=== PATIENT | female | born 1950 | race Hispanic/Latino ===

== ENCOUNTER → 2020-06-21 | Day surgery (SDC) | payer MEDICARE, OTHER ==
[2020-06-16 11:29] LABS: BASOPHILS # (AUTO) 0.1 (0.0-0.1); BASOPHILS % 1.1 % (0.0-1.0); EOSINOPHILS # (AUTO) 0.4 (0.0-0.4); EOSINOPHILS % 5.8 % (0.0-6.0); HEMATOCRIT 41.4 % (34.2-44.1); HEMOGLOBIN 13.9 g/dL (12.0-16.0); LYMPHOCYTES # (AUTO) 2.4 (1.0-3.2); LYMPHOCYTES % 33.2 % (18.0-39.1); MEAN CORPUSCULAR HEMOGLOBIN 28.7 pg (28-32); MEAN CORPUSCULAR HGB CONC 33.6 g/dL (31-35); MEAN CORPUSCULAR VOLUME 85.4 fL (81-99); MONOCYTES # (AUTO) 0.6 (0.2-0.8); MONOCYTES % 8.7 % (4.4-11.3); NEUTROPHILS # (AUTO) 3.6 (2.1-6.9); NEUTROPHILS % 51.1 % (38.7-80.0); PLATELET COUNT 290 x10e3/uL (140-360); RED BLOOD COUNT 4.85 x10e6/uL (3.6-5.1); RED CELL DISTRIBUTION WIDTH 13.2 % (11.7-14.4)
[2020-06-16 11:49] LABS: ALBUMIN 3.7 g/dL (3.5-5.0); ANION GAP 13.6 mmol/L (8-16); CALCIUM 9.8 mg/dL (8.4-10.2); CREATININE, SERUM 0.98 mg/dL (0.57-1.11); POTASSIUM 3.6 mmol/L (3.5-5.1)
[2020-06-21] VITALS (8 sets, daily range): BP systolic 135–164; BP diastolic 66–100
[~2020-06-21] VITALS: Ht 154.9 cm; Wt 78.5 kg
[~2020-06-21] MED LIST: ALPRAZOLAM 0.5 MG TAB ONE; AMLODIPINE BESY10 MG PO; DIPHENHYDRAMINE HCL 25 MG CAP ONE; FENTANYL CITRATE/PF 100MCG/2 ML INJ ONE; FLUOXETINE HCL20 MG PO; HEPARIN SOD (PORCINE) 1000 UNIT/ML 30ML ONE; HEPARIN SOD/SOD CHLORIDE 2,000 ML ONE; IOPAMIDOL 370 MG/ML 200 ML INFUS..BTL INJ ONE; LOSARTAN-HCTZ1 EAC1 PO; METOPROLOL TART50 MG PO; MIDAZOLAM HCL 2 MG/2 ML VIAL ONE; OMEPRAZOLE40 MG PO; SIMVASTATIN40 MG PO; SODIUM CHLORIDE 0.9% 1000ML 1,000 ML ONE; SYNTHROID100 MCG PO; VERAPAMIL HCL 2.5 MG/ML 2 ML VIAL ONE; VITAMIN D PO
--- NOTE | 2020-06-21 13:16 | NUR ---
1316pReceived pt to room #10,bedside report received from Min HENSON. Alert oriented and appropriate, PERRLA, respirations even and unlabored to room air. Pulses x4 extremities equal and strong. Pedal pulses PT/DP X4 and marked. Cap fill brisk < 3 sec. Rt Tr band no fix. No gross issues pain,pallor, pressure or dysrhythmia Skin warm and dry integrity appears D/I. IV 20g to presents healthy w/o s/s of infiltration or complaint. Abdomen soft and supple. pt offered toileting, denies need to urinate or defecate. No personal affects with patient. Family at bedside. Pt and family verbalizes understanding of POC. Currently w/o complaint of pain or need.
--- NOTE | 2020-06-21 13:28 | Operative Report ---
DATE OF PROCEDURE: 06/21/2020 SURGEON: Ivan Schmidt MD INDICATIONS: Coronary artery disease, angina. PROCEDURES PERFORMED: 1. Ultrasound-guided access in the right radial artery with sheath placement. 2. Conscious sedation, 35 minutes. 3. Left heart catheterization, selective coronary angiography. 4. Deployment of right wrist TR band. COMPLICATIONS: None. RECOMMENDATIONS: Medical therapy. DESCRIPTION OF PROCEDURE: Access was obtained in the right radial artery using ultrasound guidance. A 5-Greenlandic sheath was placed. Coronary angiography demonstrated 30% to 50% distal left main stenosis. Circumflex was small vessel. Left anterior descending artery had diffuse 30% to 50% stenosis. Right coronary artery with a dominant vessel with mid 50% stenosis following which, an aneurysmal segment was noted. LV end-diastolic pressure of 10. No gradient across the aortic valve on pullback. Ivan Schmidt MD [facility] /[id number]
--- NOTE | 2020-06-21 14:00 | NUR ---
1400pRADIAL Compression removal: Initial Cuff volume 12 cc 1400 -2cc Removed No hematoma/bleeding noted with normal neurovascular function. 1415 -5cc Removed No hematoma/ bleeding noted with normal neurovascular function. 1430 -5 cc Removed No hematoma/bleeding noted with normal neurovascular function. Air removal completed. Stasis achieved sterile 2x2,Tegaderm, Coban dressing No hematoma, bleeding noted with normal neurovascular function. Wrist splint in place. Pt instructed on POC. Ds/Rn
--- NOTE | 2020-06-21 14:45 | NUR ---
1445p while preparing to dress became symptomatic. HR decreased to 40's 90 systolic. 200NS bolus with HOB. Recovered bp 120/[address] Schmidt return call was informed of drop bp with drop in HR. States ok to dc home if walks ok Rt Tr band no gross issues pain,pallor,pressure or dysrhythmia. ds/rn
--- NOTE | 2020-06-21 15:30 | NUR ---
1530p Pt meets DC criteria. Rt TR band assessed for s/s of complication and presence of hematoma. Skin warm, dry, no discolor, and pulses present. IV removed from left hand Distal tip appears intact. VS WNL. Pt denies pain, sob, or need at this time. Family/ at bedside Review of discharge paperwork and follow up instructions. verbalized understanding. Pt to wheelchair and transported to front of hospital. Transferred to private vehicle under own strength w/o incident with DC paperwork in hand. -Asymptomatic. No further c/o dizzy. Md Dr Schmidt ok to dc home aware of importance of f/o ds/rn
== END | disposition home or self-care (01) ==
LOC: CATH LAB 09:52 → EDSEX 12:00
PROVIDERS: ATTEND Internal Medicine Interventional Cardiology
DX: I25.118 Atherosclerotic heart disease of native coronary artery with other forms of angina pectoris (principal); I10 Essential (primary) hypertension; Z01.812 Encounter for preprocedural laboratory examination; Z11.59 Encounter for screening for other viral diseases; Z68.32 Body mass index [BMI] 32.0-32.9, adult; Z82.49 Family history of ischemic heart disease and other diseases of the circulatory system
CPT/HCPCS: 36415; 76937; 80053; 85025; 93458; C1769 ×2; J1644; J2250; J3010; J7030; Q9967; U0002; 99152

== ENCOUNTER 2020-08-11 12:30 | Emergency (ER) | payer MEDICARE ==
[~2020-08-11] VITALS: Ht 154.9 cm; Wt 78.9 kg
[~2020-08-11 12:30] MED LIST changes: -ALPRAZOLAM 0.5 MG TAB ONE; -DIPHENHYDRAMINE HCL 25 MG CAP ONE; -FENTANYL CITRATE/PF 100MCG/2 ML INJ ONE; -HEPARIN SOD (PORCINE) 1000 UNIT/ML 30ML ONE; -HEPARIN SOD/SOD CHLORIDE 2,000 ML ONE; -IOPAMIDOL 370 MG/ML 200 ML INFUS..BTL INJ ONE; -MIDAZOLAM HCL 2 MG/2 ML VIAL ONE; -SODIUM CHLORIDE 0.9% 1000ML 1,000 ML ONE; -VERAPAMIL HCL 2.5 MG/ML 2 ML VIAL ONE
[2020-08-11] MEDS ORDERED: HYDROCODONE/APAP 5MG-325MG TAB PO ONE (12:45)
[2020-08-11] MEDS ORDERED: ONDANSETRON HCL 4 MG ORAL DISINTEGRATING TAB PO ONE (12:45)
[2020-08-11] MEDS ORDERED: TYLENOL # 31 EA PO (12:57)
[2020-08-11] MEDS ORDERED: IBUPROFEN IB200 MG PO (12:57)
[2020-08-11] MEDS ORDERED: ZOFRAN4 MG SL (12:57)
--- NOTE | 2020-08-11 13:06 | Emergency Department Note ---
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 Any updates have been documented here. 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 Past Surgical History: Hysterectomy Social History Smoking Cessation: Never Smoker Alcohol Use: Social Any Illegal Drug Use: No TB Exposure/Symptoms: No Physically hurt or threatened: No Family History Family history of heart diseas: No Other Any Pre-Existing Lines (PICC,: No Review of Systems Review of Systems Constitutional: Reports no symptoms EENTM: Reports no symptoms Cardiovascular: Reports no symptoms Respiratory: Reports no symptoms Gastrointestinal: Reports no symptoms Genitourinary: Reports no symptoms Integumentary: Reports no symptoms Neurological: Reports no symptoms Psychological: Reports no symptoms Endocrine: Reports no symptoms Hematological/Lymphatic: Reports no symptoms Physical Exam Related Data Allergies: Coded Allergies: No Known Allergies (Unverified , 08/11/20) Vital signs reviewed: Yes Physical Exam CONSTITUTIONAL Constitutional: Present well-developed, Present well-nourished HENT HENT: Present normocephalic, Present atraumatic, Present oropharynx clear/moist, Present nose normal HENT L/R: Present left ext ear normal, Present right ext ear normal EYES Eyes: Reports PERRL, Reports conjunctivae normal NECK Neck: Present ROM normal PULMONARY Pulmonary: Present effort normal, Present breath sounds normal CARDIOVASCULAR Cardiovascular: Present regular rhythm, Present heart sounds normal, Present capillary refill normal, Present normal rate GASTROINTESTINAL Abdominal: Present soft, Present nontender, Present bowel sounds normal GENITOURINARY Genitourinary: Present exam deferred SKIN Skin: Present warm, Present dry MUSCULOSKELETAL Musculoskeletal: Present tenderness, Present other (right Shoulder tender, limited ROM, right wrist normal) NEUROLOGICAL Neurological: Present alert, Present oriented x 3, Present no gross motor or sensory deficits PSYCHOLOGICAL Psychological: Present mood/affect normal, Present judgement normal Results Imaging Imaging results reviewed: Yes Impressions no acute Assessment & Plan Medical Decision Making MDM sprain vs fx Assessment & Plan Final Impression: (1) Acute pain due to trauma (2) Sprain of right shoulder Depart Disposition: HOME, SELF-group home Meds Active Scripts Ibuprofen (IBUPROFEN IB) 200 Mg Tablet, 3 TAB PO Q6H PRN for pain, #60 Prov:BUFFY DAVALOS MD 08/11/20 Ondansetron Hcl* (ZOFRAN*) 4 Mg Tablet, 4 MG SL Q6H PRN for NAUSEA, #14 MG 0 Refills Prov:BUFFY DAVALOS MD 08/11/20 Acetaminophen/Codeine* (TYLENOL # 3*) 1 Ea Tab, 1 TAB PO Q4HR PRN for pain or cough, #30 Prov:BUFFY DAVALOS MD 08/11/20 Reported Medications [Vitamin D] No Conflict Check, 2000 UNITS PO DAILY 06/21/20 Fluoxetine Hcl (FLUOXETINE HCL) 20 Mg Capsule, 20 MG PO DAILY, #30 CAP 06/21/20 Losartan/Hydrochlorothiazide (LOSARTAN-HCTZ 100-25 MG TAB) 1 Each Tablet, 1 TAB PO DAILY 06/21/20 Amlodipine Besylate (AMLODIPINE BESYLATE) 10 Mg Tablet, 10 MG PO DAILY, #30 TAB 06/21/20 Metoprolol Tartrate (METOPROLOL TARTRATE) 50 Mg Tablet, 50 MG PO DAILY, TAB 06/21/20 Omeprazole (OMEPRAZOLE) 40 Mg Capsule.dr, 40 MG PO DAILY 06/21/20 Simvastatin (SIMVASTATIN) 40 Mg Tablet, 40 MG PO DAILY, #30 TAB 06/21/20 Levothyroxine Sodium (SYNTHROID) 100 Mcg Tab, 100 MCG PO DAILY, #30 TAB 06/21/20 Medications in the ED Acetaminophen/ Hydrocodone Bitart 2 ea ONCE ONCE PO Last administered on 08/11at 12:48; Admin Dose 2 EA; Start 08/11/20 at 12:45; Stop 08/11/20 at 12:46; Status UNV Ondansetron HCl 4 mg ONCE ONCE PO Last administered on 08/11/20at 12:48; Admin Dose 4 MG; Start 08/11/20 at 12:45; Stop 08/11/20 at 12:46; Status UNV BUFFY DAVALOS MD Aug 11, 2020 13:06
--- NOTE | 2020-08-11 13:12 | Diagnostic Imaging Report ---
Right shoulder, 3 views INDICATION: ^s/p fall ^[id number] ^[id number] Comparison: None available. Discussion: Multiple views of the right shoulder are negative for an acute displaced fracture or dislocation. Glenohumeral joint space is well maintained. Midclavicular joint spaces demonstrate mild degenerative change. Mild sclerosis and hypertrophy of the greater tuberosity are noted. Partially visualized lung parenchyma is clear. Partially visualized surrounding osseous structures and soft tissues are unremarkable. IMPRESSION: Negative for acute displaced fracture or dislocation of the right shoulder. Sclerosis and hypertrophy of the greater tuberosity is nonspecific but can is seen in patients with chronic rotator cuff tendinopathy. Signed by: Arya Hebert MD on 08/11/2020 1:09 PM
--- NOTE | 2020-08-11 13:14 | Diagnostic Imaging Report ---
Right wrist, 2 views INDICATION: ^s/p fall ^[id number] ^[id number] Comparison: None available. Discussion: AP and lateral views of the right wrist are negative for grossly displaced fracture or dislocation. Intercarpal joint spaces are well-maintained. Mild narrowing of the radiocarpal joint space is noted. Moderate narrowing of the first carpometacarpal joint is noted. IMPRESSION: Negative for acute displaced fracture or dislocation of the right wrist. If there are persistent symptoms, especially localized to the anatomic snuffbox, consider follow-up radiographs in 7-10 days with attention to the scaphoid. Moderate degenerative change of the first carpal metacarpal joint and mild degenerative change of the radiocarpal joint. Signed by: Arya Hebert MD on 08/11/2020 1:10 PM
--- OUTSIDE RECORDS SUMMARY | 2020-08-13 16:19 | XMS REPORT | Clinical Summary ---
Author Author [facility] Address Unknown Phone Unavailable Care Team Providers Care Gut Cleaner Name Role Phone Veronica Ramos MD PCP Allergies No Known Allergies Medications End Date Status Medication Sig Dispensed Refills Start Date Active ergocalciferol (VITAMIN TOME 1 0 D2) 50,000 unit capsule CAPSULA CADA 9 SEMANA POR 8 SEMANAS. Active omeprazole (PRILOSEC) 40 1 CAPSULE 0 08/02200 MG capsule DAILY. 9 Active rosuvastatin (CRESTOR) 40 Take 40 mg by 0 MG tablet mouth daily. Active levothyroxine (SYNTHROID, Take 100 mcg 0 LEVOTHROID) 100 MCG by mouth tablet Every morning on an empty stomach. Active losartan-hydrochlorothiaz Take 1 tablet 0 marilyn (HYZAAR) 100-12.5 mg by mouth per tablet daily. Active Problems No known active problems Social History Date Tobacco Use Types Packs/Day Years Used Never Smoker Alcohol Use Drinks/Week oz/Week Comments No Sex Assigned at Date Recorded Not on file Industry Job Start Date Occupation Not on file Not on file Not on file Travel End Travel History Travel Start No recent travel history available. Last Filed Vital Signs Not on file Plan of Treatment Not on file Results Not on fileafter 08/11/2019 Insurance Payer Benefit Subscriber ID Type Phone Address Plan / Group BLUE CROSS/BLUE SHIELD - BCBS xxxxxxxxxxxx MEDICARE [employer] CARE MEDICARE ADVANTAGE
--- OUTSIDE RECORDS SUMMARY | 2020-08-13 16:19 | XMS REPORT | Continuity of Care Document ---
Author Author [facility] t Organization [facility] Address [address] [place] [address] [place] [id number] Phone Unavailable Care Team Providers Care Steward [employer] Name Role Phone Jud WAYNE PCP Laila DAVALOS Attphys Unavailable TRAVIS SHIRLEY Attphys Unavailable Problems Condition Name Condition Details Condition Category Status Onset Date Resolution Date Last Treatment Date Treating Clinician Comments Source Acute pain due to trauma Problem [facility] Sprain of right shoulder Problem [facility] Allergies, Adverse Reactions, Alerts This patient has no known allergies or adverse reactions. Social History Social Habit Start Date Stop Date Quantity Comments Source Sex Assigned At [facility] Smoking Status Start Date Stop Date Source Never smoker [facility] Medications Ordered Medication Name Filled Medication Name Start Date Stop Da te Current Medication? Ordering Clinician Indication Dosage Frequency Signature (SIG) Comments Components Source Acetaminophen/Codeine Phosphate (Tylenol # 3*) 1 Ea TA B Acetaminophen/Codeine Phosphate (Tylenol # 3*) 1 Ea TAB 2020-08-11 12:57:00 Yes 1 Every 4 Hours as needed for Pain Or Cough [facility] Ibuprofen (Ibuprofen Ib) 200 Mg TABLET Ibuprofen (Ibuprofen Ib) 200 Mg TABLET 2020-08-11 12:57:00 Yes 3 Every 6 Hours as n eeded for Pain [facility] Ondansetron Hcl (Zofran*) 4 Mg TABLET Ondansetron Hcl (Zofra n*) 4 Mg TABLET 2020-08-11 12:57:00 Yes 4 Every 6 Hours as n eeded for Nausea [facility] rosuvastatin (CRESTOR) 40 MG tablet 2016-08-01 21:59:45 Yes 40mg QD Take 40 mg by mouth daily. [facility] levothyroxine (SYNTHROID, LEVOTHROID) 100 MCG tablet 2 21:59:45 Yes 100ug Take 100 mcg by mouth Every morning on a n empty stomach. [facility] losartan-hydrochlorothiazide (HYZAAR) 100-12.5 mg per tablet 2016-08-01 21:59:45 Yes 1{tbl} QD Take 1 tablet by mouth daily. [facility] ergocalciferol (VITAMIN D2) 50,000 unit capsule 2009-09-07 00:00 :00 Yes TOME 1 CAPSULA CADA SEMANA POR 8 SEMANAS. [facility] omeprazole (PRILOSEC) 40 MG capsule 2009-08-02 00:00:00 Yes 1 CAPSULE DAILY. [facility] Amlodipine Besylate Amlodipine Besylate Yes 10 Daily [facility] Fluoxetine Hcl Fluoxetine Hcl Yes 20 Daily [facility] Levothyroxine Sodium (Synthroid) 100 Mcg TAB Levothyro xine Sodium (Synthroid) 100 Mcg TAB Yes 100 Daily [facility] Losartan/Hydrochlorothiazide (Losartan-Hctz 100-25 Mg Tab) 1 Each TABLET Losartan/Hydrochlorothiazide (Losartan-Hctz 100-25 Mg Tab) 1 Each TABLET Yes 1 Daily [facility] Metoprolol Tartrate Metoprolol Tartrate Yes 50 Daily [facility] Omeprazole Omeprazole Yes 40 Daily [facility] Simvastatin Simvastatin Yes 40 Daily [facility] Vitamin D Vitamin D Yes 2000 Daily [facility] Vital Signs Vital Name Observation Time Observation Value Comments Source Weight 2020-08-11 12:30:00 174 [lb_av] [facility] BMI (Body Mass Index) 2020-08-11 12:30:00 32.9 kg/m2 [facility] Body Temperature 2020-06-21 10:14:00 97.3 [degF] [facility] Procedures Procedure Date / Time Performed Performing Clinician Julio Everett HRT ARTERY/VENTRICLE ANGIO 2020-06-21 00:00:00 [facility] Plan of Care Planned Activity Planned Date Details Comments Source Instructions Sprains [facility] Instructions Fall Prevention [facility] Instructions RICE Therapy [facility] Encounters Start Date/Time End Date/Time Encounter Type Admission Type [facility] Care Department Encounter ID Source 2020-08-11 12:44:00 2020-08-11 13:13:00 Departed Emergency Room BUFFY DAVALOS [facility] [id number] [facility] 2020-06-21 09:52:00 2020-06-21 09:52:00 Registered Surgical Day Care [facility] [id number] [facility] Results Test Description Test Time Test Comments Results Result Comments Source WRIST 2 VIEW RT - HOPD 2020-08-11 13:09:00 [place] [address] Patient Name: CATHERINE HERNANDEZ MR #: [id number] : 1950 Age/Sex: 69/F Req #: [id number] Adm Physician: Ordered by: BUFFY DAVALOS MD Report #: [id number] Location: [facility] Room/Bed: Procedure: [id number] HOPD/WRIST 2 VIEW RT - HOPD Exam Date: 08/11/20 Exam Time: 1256 REPORT STATUS: Signed Right wrist, 2 views INDICATION: s/p fall 20200811 Comparison: None available. Discussion: AP and lateral views of the right wrist are negative for grossly displaced fracture or dislocation. Intercarpal joint spaces are well-maintained. Mild narrowing of the radiocarpal joint space is noted. Moderate narrowing of the first carpometacarpal joint is noted. IMPRESSION: Negative for acute displaced fracture or dislocation of the right wrist. If there are persistent symptoms, especially localized to the anatomic snuffbox, consider follow-up radiographs in 7-10 days with attention to the scaphoid. Moderate degenerative change of the first carpal metacarpal joint and mild degenerative change of the radiocarpal joint. Signed by: Tori Hebert MD on 08/11/2020 1:10 PM Dictated By: TORI HEBERT MD 09 Transcribed By: BRYCE on 08/11/201309 COPY TO: BUFFY DAVALOS MD SHOULDER 2+VW RT - HOPD 2020-08-11 13:08:00 [place] [address] Patient Name: CATHERINE HERNANDEZ MR #: [id number] : 1950 Age/Sex: 69/F Req #: [id number] [facility] Physician: Ordered by: BUFFY DAVALOS MD Report #: [id number] Location: [facility] Room/Bed: Procedure: [id number] HOPD/SHOULDER 2+VW RT - HOPD Exam Date: 08/11/20 Exam Time: 1256 REPORT STATUS: Signed Right shoulder, 3 views INDICATION: s/p fall 20200811 Comparison: None available. Discussion: Multiple views of the right shoulder are negative for an acute displaced fracture or dislocation. Glenohumeral joint space is well main tained. Midclavicular joint spaces demonstrate mild degenerative change. Mild sclerosis and hypertrophy of the greater tuberosity are noted. Partially visualized lung parenchyma is clear. Partially visualized surrounding osseous structures and soft tissues are unremarkable. IMPRESSION: Negative for acute displaced fracture or dislocation of the right shoulder. Sclerosis and hypertrophy of the greater tuberosity is nonspecific but can is seen in patients with chronic rotator cuff tendinopathy. Signed by: Tori Hebert MD on 08/11/2020 1:09 PM Dictated By: TORI HEBERT MD 130 Transcribed By: BRYCE on 08/11/201308 COPY TO: BUFFY DAVALOS MD Fluoroscopic procedure less than one hour duration 2020-05-19 11:35:00 Test Item Coronavirus (PCR) (test code = Coronavirus (PCR)) NOT DETECTED NOTD ETECTED [employer] Aptima SARS-CoV-2 assay is a nucleic amplification test intended for the qualitative detection of RNA from SARS-CoV-2 from nasopharyngeal (LAW LIBRARIAN) specimens . It is used under Emergency Use Authorization (EUA) by FDA.A positive result is indicative of the presence of SARS-CoV-2 RNA. Clinical correlation with patient history and other diagnostic information is necessary to determine patient infe ction status.A negative (Not Detected) result does not preclude SARS-CoV-2 infec tion. Clinical Correlation with patient history and other diagnostic information should be used in patient management decisions.Invalid: Unable to generate a va lid result on this specimen. Please submit a new specimen for reprat testing oc clinically indicated.Tesing performed by:[facility] [address] [place] [id number], Oswald Trammell MD, PhD [facility] automated count (number/volume)2020-06-16 11:21:00* Test Item Value Reference Range Interpretation Comments White Blood Count (test code = 6690-2) 7.11 4.8-10.8 [facility] erythrocytes automated count (number/volume)2020-06-16 11:21:00* Test Item Value Reference Range Interpretation Comments Red Blood Count (test code = 789-8) 4.85 3.6-5.1 [facility] hemoglobin measurement (moles/volume)2020-06-16 11:21:00* Test Item Value Reference Range Interpretation Comments Hemoglobin (test code = 80551-1) 13.9 12.0-16.0 [facility] blood hematocrit (volume fraction)2020-06-16 11:21:00* Test Item Value Reference Range Interpretation Comments Hematocrit (test code = 4544-3) 41.4 34.2-44.1 [facility] erythrocyte mean corpuscular gfcpxu5427-77-79 11:21:00* Test Item Value Reference Range Interpretation Comments Mean Corpuscular Volume (test code = 787-2) 85.4 81-99 [facility] eryth[facility] mean corpuscular hemoglobin (mass per erythrocyte)2020-06-16 11:21:00* Test Item Value Reference Range Interpretation Comments Mean Corpuscular Hemoglobin (test code = 785-6) 28.7 28-32 [facility] erythrocyte mean corpuscular hemoglobin concentration measurement (mass/volume)2020-06-16 11:21:00* Test Item Value Reference Range Interpretation Comments Mean Corpuscular Hemoglobin Concent (test code = 786-4) 33.6 31-35 [facility]anoRDW FarCp-Lyk3848-64-31 11:21:00* Test Item Value Reference Range Interpretation Comments Red Cell Distribution Width (test code = 69455-2) 13.2 11.7 -14.4 [facility] blood platelet count (count/volume)2020-06-16 11:21:00* Test Item Value Reference Range Interpretation Comments Platelet Count (test code = 777-3) 290 140-360 [facility] segmented neutrophil count as percentage of total wvttbctala9058-43-60 11:21:00* Test Item Value Reference Range Interpretation Comments Neutrophils (%) (Auto) (test code = 54500-4) 51.1 38.7-80.0 [facility] blood lymphocyte count as percentage ot total qapjmtfrjr7414-30-78 11:21:00* Test Item Value Reference Range Interpretation Comments Lymphocytes (%) (Auto) (test code = 736-9) 33.2 18.0-39.1 [facility] blood monocyte count as percentage of total lazizanpsg1069-13-65 11:21:00* Test Item Value Reference Range Interpretation Comments Monocytes (%) (Auto) (test code = 5905-5) 8.7 4.4-11.3 [facility] blood eosinophil count as percentage of total mlmxldntud1455-41-21 11:21:00* Test Item Value Reference Range Interpretation Comments Eosinophils (%) (Auto) (test code = 713-8) 5.8 0.0-6.0 [facility] blood basophil count as percentage of total eggwkzwqkt1588-67-96 11:21:00* Test Item Value Reference Range Interpretation Comments Basophils (%) (Auto) (test code = 706-2) 1.1 0.0-1.0 [facility]anoFluoroscopic procedure less than one hour xreufwxw8535-96-75 11:21:00* Test Item Value Reference Range Interpretation Comments IM GRANULOCYTES % (test code = IM GRANULOCYTES %) 0.1 0.0- 1.0 [facility] blood neutrophil count 2020-06-16 11:21:00* Test Item Value Reference Range Interpretation Comments Neutrophils # (Auto) (test code = 751-8) 3.6 2.1-6.9 [facility] lymphocytes count (number/volume) 2020-06-16 11:21:00* Test Item Value Reference Range Interpretation Comments Lymphocytes # (Auto) (test code = 75349-6) 2.4 1.0-3.2 [facility] monocytes automated count (number/volume)2020-06-16 11:21:00* Test Item Value Reference Range Interpretation Comments Monocytes # (Auto) (test code = 742-7) 0.6 0.2-0.8 [facility] blood eosinophil count 2020-06-16 11:21:00* Test Item Value Reference Range Interpretation Comments Eosinophils # (Auto) (test code = 711-2) 0.4 0.0-0.4 [facility] blood basophil count (count/volume)2020-06-16 11:21:00* Test Item Value Reference Range Interpretation Comments Basophils # (Auto) (test code = 704-7) 0.1 0.0-0.1 [facility]anoFluoroscopic procedure less than one hour kpkdhuzc9036-71-39 11:21:00* Test Item Value Reference Range Interpretation Comments Absolute Immature Granulocyte (auto (marcio t code = Absolute Immature Granulocyte (auto) 0.01 0-0.1 [facility] or plasma sodium measurement (moles/volume)2020-06-16 11:21:00* Test Item Value Reference Range Interpretation Comments Sodium Level (test code = 2951-2) 141 136-145 [facility] or plasma potassium measurement (moles/volume)2020-06-16 11:21:00* Test Item Value Reference Range Interpretation Comments Potassium Level (test code = 2823-3) 3.6 3.5-5.1 [facility] or plasma chloride measurement (moles/volume)2020-06-16 11:21:00* Test Item Value Reference Range Interpretation Comments Chloride Level (test code = 2075-0) 106 98-107 [facility] or plasma carbon dioxide, total measurement (moles/volume)2020-06-16 11:21:00* Test Item Value Reference Range Interpretation Comments Carbon Dioxide Level (test code = 2028-9) 25 22-29 [facility] or plasma anion vxl5822-86-47 11:21:00* Test Item Value Reference Range Interpretation Comments Anion Gap (test code = 48783-1) 13.6 8-16 [facility] or plasma urea nitrogen measurement (mass/volume)2020-06-16 11:21:00* Test Item Value Reference Range Interpretation Comments Blood Urea Nitrogen (test code = 3094-0) 13 7-26 [facility] or plasma creatinine measurement (mass/volume)2020-06-16 11:21:00* Test Item Value Reference Range Interpretation Comments Creatinine (test code = 2160-0) 0.98 0.57-1.11 [facility] or plasma urea nitrogen/creatinine mass kbsub3544-79-01 11:21:00* Test Item Value Reference Range Interpretation Comments BUN/Creatinine Ratio (test code = 3097-3) 13 6-25 [facility]anoEstimated glomerular filtration rate (GFR) bocqcinhytzod2976-13-72 11:21:00* Test Item Value Reference Range Interpretation Comments Estimat Glomerular Filtration Rate (test code = 615448858) 57 >60 Ranges were taken from the National Kidney Disease Education Program and the Count includes the [facility] Kidney Foundation literature.Reference ranges:60 or greater: Pvrugo27-50 ( for 3 consecutive months): Chronic kidney disease 15 or less: Kidney failureTexas Health Presbyterian Hospital PlanoGlucose qvoomedfkio3002-92-41 11:21:00* Test Item Value Reference Range Interpretation Comments Glucose Level (test code = GAQ5241) 113 74-118 [facility] or plasma calcium measurement (mass/volume)2020-06-16 11:21:00* Test Item Value Reference Range Interpretation Comments Calcium Level (test code = 11739-5) 9.8 8.4-10.2 [facility] or plasma total bilirubin measurement (mass/volume)2020-06-16 11:21:00* Test Item Value Reference Range Interpretation Comments Total Bilirubin (test code = 1975-2) 0.5 0.2-1.2 [facility]anoFluoroscopic procedure less than one hour ehwcyprr7930-43-52 11:21:00* Test Item Value Reference Range Interpretation Comments Aspartate Amino Transf (AST/SGOT) (test code = Aspartate Amino Transf (AST/SGOT)) 20 5-34 [facility]um or plasma alanine aminotransferase measurement (enzymatic activity/volume)2020-06-16 11:21:00* Test Item Value Reference Range Interpretation Comments Alanine Aminotransferase (ALT/SGPT) (test code = 1742-6) 27 0-55 [facility] or plasma protein measurement (mass/volume)2020-06-16 11:21:00* Test Item Value Reference Range Interpretation Comments Total Protein (test code = 2885-2) 7.4 6.5-8.1 [facility] or plasma albumin measurement (mass/volume)2020-06-16 11:21:00* Test Item Value Reference Range Interpretation Comments Albumin (test code = 1751-7) 3.7 3.5-5.0 [facility] globulin measurement (mass/volume) 2020-06-16 11:21:00* Test Item Value Reference Range Interpretation Comments Globulin (test code = 19244-0) 3.7 2.3-3.5 [facility] or plasma albumin/globulin mass islse9500-24-68 11:21:00* Test Item Value Reference Range Interpretation Comments Albumin/Globulin Ratio (test code = 1759-0) 1.0 0.8-2.0 [facility]um or plasma alkaline phosphatase measurement (enzymatic activity/volume)2020-06-16 11:21:00* Test Item Value Reference Range Interpretation Comments Alkaline Phosphatase (test code = 6768-6) 105 40-150 [facility]CR M[facility]M BILATERAL MELIA CAD DIGITAL 2019-09-22 08:04:44 - SCR MAMM BILATERAL MELIA CAD DIGITALBILATERAL DIGITAL SCREENING MAMMOGRAM 3D/2D WITH CAD: 09/22/2019CLINICAL: Asymptomatic. Digital breast tomosynthesis was performed in addition to routine CC and MLO views. Current mammographic images were evaluated by either a [employer] M-Vu or a [employer] ImageChecker CAD (computer aided detection system). No prior exams were available for comparison. The tissue of both breasts is predominantly fatty. There are post operative findings of prior excisional biopsy in the right breast. No suspicious mass, architectural distortion, malignant type calcification, or lymph node abnormality detected. IMPRESSION: NEGATIVEThere is no mammographic evidence of malignancy. Resume annual screening mammography in one year. Rachelle gilmore/:09/22/2019 08:04:44 [employer]: [facility] [employer], [facility]-FWletter sent: BIRADS 1-2 Normal Mammogram BI-RADS: 1 NegativeRAD, CHEST, 2 [id number] 21:08:00 Reason for exam:->coughShould this be performed at the bedside?->NoFINAL REPORT RAD, CHEST, 2 VIEWS INDICATION: cough COMPARISON: Chest x-ray in 2009 TECHNIQUE: Frontal and lateral views of the chest. FINDINGS: Cardiomediastinal silhouette within normal limits.No overt consolidative or congestive change.No acute osseous abnormality. IMPRESSION:No acute cardio pulmonary abnormality. Signed: Abhijeet Fields MDReport Verified Date/Time: 21:08:03 Reading Location: [address] Consult Reading Room D STREP A [id number] 20:54:00* Test Item Value Reference Range Interpretation Comments STREP A ANTIGEN (BEAKER) (test code = 556) Negative Negative RAPID INFLUENZA A&B [id number] 20:53:00* Test Item Value Reference Range Interpretation Comments RAPID INFLUENZA A AG (BEAKER) (test code = 1622) Negative Negative, Inconclusive RAPID INFLUENZA B AG (BEAKER) (test code = 1623) Negative Negative, Inconclusive
== END 2020-08-11 13:13 | disposition home or self-care (01) ==
LOC: FSED 12:44
DX: S43.401A Unspecified sprain of right shoulder joint, initial encounter (principal); W07.XXXA Fall from chair, initial encounter; I10 Essential (primary) hypertension; E78.5 Hyperlipidemia, unspecified
CPT/HCPCS: 73030; 73100; 99283; Q0162

== ENCOUNTER → 2020-09-20 | Day surgery (SDC) | payer MEDICARE ==
[2020-09-15 12:48] LABS: BASOPHILS # (AUTO) 0.1 (0.0-0.1); EOSINOPHILS # (AUTO) 0.2 (0.0-0.4); EOSINOPHILS % 2.8 % (0.0-6.0); HEMATOCRIT 42.3 % (34.2-44.1); HEMOGLOBIN 14.4 g/dL (12.0-16.0); LYMPHOCYTES # (AUTO) 2.3 (1.0-3.2); LYMPHOCYTES % 27.4 % (18.0-39.1); MEAN CORPUSCULAR HEMOGLOBIN 29.9 pg (28-32); MEAN CORPUSCULAR VOLUME 87.9 fL (81-99); MONOCYTES # (AUTO) 0.5 (0.2-0.8); NEUTROPHILS # (AUTO) 5.2 (2.1-6.9); NEUTROPHILS % 62.6 % (38.7-80.0); PLATELET COUNT 316 x10e3/uL (140-360); RED BLOOD COUNT 4.81 x10e6/uL (3.6-5.1); RED CELL DISTRIBUTION WIDTH 13.2 % (11.7-14.4)
[2020-09-15 13:07] LABS: ANION GAP 11.2 mmol/L (8-16); CALCIUM 10.5 mg/dL (8.4-10.2); CREATININE, SERUM 1.05 mg/dL (0.57-1.11); POTASSIUM 4.2 mmol/L (3.5-5.1)
[~2020-09-20] MED LIST changes: +ASPIRIN81 MG PO; +CEFAZOLIN SOD 1 GM/NS 50ML 100 ML IV ONE; +DEXAMETHASONE SOD PHOS INJ 4 MG/ML VIAL ONE; +EPINEPHRINE 1 MG/ML 30ML VIAL ONE; +ETOMIDATE 2 MG/ML 10 ML INJ IV ONE; +FAMOTIDINE 20 MG/2 ML VIAL IV ONE; +FENTANYL CITRATE/PF 100MCG/2 ML INJ ONE; +GLYCOPYRROLATE INJ 0.2 MG/ML VIAL ONE; +HYDROCODONE/APAP 5MG-325MG TAB ONE; +HYDROMORPHONE 1MG/1ML INJ ONE; +IBUPROFEN IB200 MG PO; +LIDOCAINE 2%/ EPINEPHRINE 20ML MDV ONE; +LIDOCAINE HCL 2% JELLY 5 ML TUBE ONE; +LIDOCAINE HCL 2% LOCAL INJ 5 ML SDV VIAL INJ ONE; +LIPITOR10 MG PO; +METOCLOPRAMIDE HCL 10 MG/2ML VIAL ONE; +MIDAZOLAM HCL 2 MG/2 ML VIAL ONE; +NEOSTIGMINE 1 MG/ML 10ML VIAL ONE; +ONDANSETRON HCL INJ 2MG/ML 2ML 2 MG/ML VIAL ONE; +PROGESTERONE200 MG PO; +PROPOFOL IV EMULSION 10 MG/ML 20 ML VIAL ONE; +ROCURONIUM BROMIDE 10 MG/ML 5ML VIAL IV ONE; +ROPIVACAINE 0.5% 5 MG/ML 30 ML SDV ONE; +SEVOFLURANE INHAL SOLN 250 ML PEN BTL ONE; +SODIUM CHLORIDE 0.9% 50ML 50 ML ONE; +TYLENOL # 31 EA PO; +ZOFRAN4 MG SL
[2020-09-20 16:30] VITALS: BP 128/71
== END | disposition home or self-care (01) ==
LOC: OR 09:07
PROVIDERS: ATTEND Specialist
DX: S46.091A Other injury of muscle(s) and tendon(s) of the rotator cuff of right shoulder, initial encounter (principal); M19.011 Primary osteoarthritis, right shoulder; M65.811 Other synovitis and tenosynovitis, right shoulder; I10 Essential (primary) hypertension; E03.9 Hypothyroidism, unspecified; K21.9 Gastro-esophageal reflux disease without esophagitis; F41.0 Panic disorder [episodic paroxysmal anxiety]; W07.XXXA Fall from chair, initial encounter; Z01.810 Encounter for preprocedural cardiovascular examination; Z01.812 Encounter for preprocedural laboratory examination; Z01.818 Encounter for other preprocedural examination; Z11.59 Encounter for screening for other viral diseases; Z79.82 Long term (current) use of aspirin; Z68.33 Body mass index [BMI] 33.0-33.9, adult
CPT/HCPCS: 29824; 29826; 29827; 36415; 71046; 80048; 85025; 93005; C1713; J0690; J1100; J1170; J2001 ×2; J2405; J2704; J2710; J2765; U0002; J2250; J2795; J3010

== ENCOUNTER → 2021-03-09 | Outpatient (CLI) | payer OTHER ==
[~2021-03-09] MED LIST changes: -CEFAZOLIN SOD 1 GM/NS 50ML 100 ML IV ONE; -DEXAMETHASONE SOD PHOS INJ 4 MG/ML VIAL ONE; -EPINEPHRINE 1 MG/ML 30ML VIAL ONE; -ETOMIDATE 2 MG/ML 10 ML INJ IV ONE; -FAMOTIDINE 20 MG/2 ML VIAL IV ONE; -FENTANYL CITRATE/PF 100MCG/2 ML INJ ONE; -GLYCOPYRROLATE INJ 0.2 MG/ML VIAL ONE; -HYDROCODONE/APAP 5MG-325MG TAB ONE; -HYDROMORPHONE 1MG/1ML INJ ONE; -LIDOCAINE 2%/ EPINEPHRINE 20ML MDV ONE; -LIDOCAINE HCL 2% JELLY 5 ML TUBE ONE; -LIDOCAINE HCL 2% LOCAL INJ 5 ML SDV VIAL INJ ONE; -METOCLOPRAMIDE HCL 10 MG/2ML VIAL ONE; -MIDAZOLAM HCL 2 MG/2 ML VIAL ONE; -NEOSTIGMINE 1 MG/ML 10ML VIAL ONE; -ONDANSETRON HCL INJ 2MG/ML 2ML 2 MG/ML VIAL ONE; -PROPOFOL IV EMULSION 10 MG/ML 20 ML VIAL ONE; +REGADENOSON 0.4 MG/5 ML SYR IV ONE; -ROCURONIUM BROMIDE 10 MG/ML 5ML VIAL IV ONE; -ROPIVACAINE 0.5% 5 MG/ML 30 ML SDV ONE; -SEVOFLURANE INHAL SOLN 250 ML PEN BTL ONE; -SODIUM CHLORIDE 0.9% 50ML 50 ML ONE
== END ==
LOC: NM 07:55
PROVIDERS: ATTEND Internal Medicine Interventional Cardiology
DX: I20.8 Other forms of angina pectoris (principal)
CPT/HCPCS: 78452; 93017; A9502; J2785